=== PATIENT | male | born 2000 | race Caucasian/White ===

== ENCOUNTER 2023-09-18 14:34 | Emergency (ER) | payer OTHER ==
[~2023-09-18] VITALS: Ht 172.7 cm; Wt 76.1 kg
[2023-09-18 18:23] LABS: BASO # 0.1 10^3/uL (0.0-0.2); BASO % 0.9 % (0.0-1.0); EOS # 0.3 10^3/uL (0.0-0.5); EOS % 2.8 % (0.0-3.0); HEMATOCRIT 46.2 % (42.0-52.0); HEMOGLOBIN 16.3 g/dl (13.5-17.5); LYMPH # 3.9 10^3/uL (1.5-5.0); LYMPH % 43.4 % (24.0-44.0); MEAN CORPUSCULAR HEMOGLOBIN 31.7 pg (27.0-33.0); MEAN CORPUSCULAR HGB CONC 35.3 g/dl (32.0-36.5); MEAN CORPUSCULAR VOLUME 89.9 fl (80.0-96.0); MONO # 0.7 10^3/uL (0.0-0.8); MONO % 7.4 % (2.0-8.0); NEUTROPHILS % 44.9 % (36.0-66.0); PLATELET COUNT, AUTOMATED 275 10^3/uL (150-450); RED BLOOD COUNT 5.14 10^6/uL (4.30-6.10); WHITE BLOOD COUNT 8.9 10^3/uL (4.0-10.0)
[2023-09-18] MEDS: NS 1,000 ML IV ONE (18:25)
[2023-09-18] MEDS: methylPREDNISolone 125MG 2ML VIAL IV ONE (18:25)
[2023-09-18] MEDS: LORazepam 2 MG/ML 1ML VIAL IV STA (18:25)
[2023-09-18] MEDS: diphenhydrAMINE 50MG/ML VIAL IV ONE (18:25)
[2023-09-18 18:48] LABS: BLOOD UREA NITROGEN 11 MG/DL (9-23); CALCIUM LEVEL 9.6 MG/DL (8.5-10.1); CARBON DIOXIDE LEVEL 31 MMOL/L (20-31); CHLORIDE LEVEL 104 MMOL/L (98-107); CREATININE FOR GFR 0.81 MG/DL (0.70-1.30); GLOMERULAR FILTRATION RATE > 60.0 (>60); GLUCOSE, FASTING 84 MG/DL (60-100); MAGNESIUM LEVEL 2.1 MG/DL (1.8-2.4); POTASSIUM SERUM 4.2 MMOL/L (3.5-5.1); SODIUM LEVEL 142 MMOL/L (136-145)
[2023-09-18] MEDS ORDERED: CLEO300C2 PO (19:59)
[2023-09-18 20:08] VITALS: BP 112/63; TEMP 97.6; O2SAT 100
== END 2023-09-18 20:13 | disposition home or self-care (01) ==
LOC: M ED 14:34
DX: L27.0 Generalized skin eruption due to drugs and medicaments taken internally (principal); Z79.2 Long term (current) use of antibiotics
CPT/HCPCS: 80048; 83735; 85025; 96374; 99284; J1200; J2060; J2919

== ENCOUNTER 2024-03-28 13:46 | Emergency (ER) | payer OTHER ==
[~2024-03-28] VITALS: Ht 170.2 cm; Wt 70.5 kg
[~2024-03-28 13:46] MED LIST: CLEO300C2 PO
[2024-03-28 13:49] VITALS: BP 125/76; TEMP 98.4; O2SAT 100
[2024-03-28] MEDS ORDERED: IBUP80TA PO (14:15)
[2024-03-28] MEDS ORDERED: advil PO (14:15)
[2024-03-28] MEDS ORDERED: NAPR-1405 PO (14:15)
[2024-03-28 14:50] LABS: BASO % 0.6 % (0.0-1.0); EOS # 0.1 10^3/uL (0.0-0.5); EOS % 1.6 % (0.0-3.0); HEMOGLOBIN 15.5 g/dl (13.5-17.5); LYMPH # 2.5 10^3/uL (1.5-5.0); LYMPH % 38.6 % (24.0-44.0); MEAN CORPUSCULAR HEMOGLOBIN 32.4 pg (27.0-33.0); MEAN CORPUSCULAR HGB CONC 35.2 g/dl (32.0-36.5); MEAN CORPUSCULAR VOLUME 92.1 fl (80.0-96.0); MONO # 0.5 10^3/uL (0.0-0.8); MONO % 8.2 % (2.0-8.0); NEUTROPHILS # 3.3 10^3/uL (1.5-8.5); NEUTROPHILS % 50.8 % (36.0-66.0); PLATELET COUNT, AUTOMATED 269 10^3/uL (150-450); RED BLOOD COUNT 4.78 10^6/uL (4.30-6.10); WHITE BLOOD COUNT 6.4 10^3/uL (4.0-10.0)
[2024-03-28 15:06] LABS: AMPHETAMINES LEVEL URINE NEGATIVE (NEGATIVE); BARBITURATES URINE NEGATIVE (NEGATIVE); BENZODIAZEPINES URINE NEGATIVE (NEGATIVE); CANNABINOIDS URINE NEGATIVE (NEGATIVE); COCAINE METABOLITE URINE NEGATIVE (NEGATIVE); METHADONE URINE NEGATIVE (NEGATIVE); OPIATES URINE NEGATIVE (NEGATIVE); PHENCYCLIDINE URINE NEGATIVE (NEGATIVE)
[2024-03-28 15:07] LABS: ETHYL ALCOHOL (ETHANOL) 0.004 % (0.000-0.010)
[2024-03-28 15:08] LABS: ALBUMIN 4.5 G/DL (3.2-5.2); ALKALINE PHOSPHATASE 79 U/L (40-129); ALT/SGPT 22 U/L (7.0-40); AST/SGOT 17 U/L (<34); BILIRUBIN,DIRECT 0.2 MG/DL (<0.4); BILIRUBIN,TOTAL 0.5 MG/DL (0.3-1.2); BLOOD UREA NITROGEN 11 MG/DL (9-23); CALCIUM LEVEL 9.5 MG/DL (8.5-10.1); CARBON DIOXIDE LEVEL 28 MMOL/L (20-31); CHLORIDE LEVEL 110 MMOL/L (98-107); CREATININE FOR GFR 0.86 MG/DL (0.70-1.30); GLOMERULAR FILTRATION RATE > 60.0 (>60); GLUCOSE, FASTING 86 MG/DL (60-100); POTASSIUM SERUM 3.7 MMOL/L (3.5-5.1); SALICYLATE LEVEL < 3.0 MG/DL (<30); SODIUM LEVEL 146 MMOL/L (136-145)
[2024-03-28 15:12] LABS: THYROID STIMULATING HORMONE 1.396 uIU/ML (0.55-4.78)
[2024-03-28] MEDS: OMEPRAZOLE 20MG CAP PO ONE (19:05)
[2024-03-28] MEDS ORDERED: OMEP-173 PO (19:45)
== END 2024-03-28 19:53 | disposition home or self-care (01) ==
LOC: M ED 13:46
DX: F41.9 Anxiety disorder, unspecified (principal); R10.13 Epigastric pain; F17.210 Nicotine dependence, cigarettes, uncomplicated; F10.10 Alcohol abuse, uncomplicated; Z88.1 Allergy status to other antibiotic agents; Z79.1 Long term (current) use of non-steroidal anti-inflammatories (NSAID); Z79.899 Other long term (current) drug therapy

== ENCOUNTER 2024-05-06 13:21 | Emergency (ER) | payer OTHER ==
[~2024-05-06] VITALS: Ht 170.2 cm; Wt 72.0 kg
[~2024-05-06 13:21] MED LIST changes: +IBUP80TA PO; +NAPR-1405 PO; +OMEP-173 PO; +advil PO
[2024-05-06 14:45] LABS: BASO % 0.8 % (0.0-1.0); EOS # 0.1 10^3/uL (0.0-0.5); EOS % 2.1 % (0.0-3.0); HEMOGLOBIN 15.4 g/dl (13.5-17.5); LYMPH # 2.1 10^3/uL (1.5-5.0); LYMPH % 39.7 % (24.0-44.0); MEAN CORPUSCULAR HEMOGLOBIN 32.1 pg (27.0-33.0); MEAN CORPUSCULAR HGB CONC 34.2 g/dl (32.0-36.5); MEAN CORPUSCULAR VOLUME 93.8 fl (80.0-96.0); MONO # 0.4 10^3/uL (0.0-0.8); MONO % 7.5 % (2.0-8.0); NEUTROPHILS # 2.6 10^3/uL (1.5-8.5); NEUTROPHILS % 49.7 % (36.0-66.0); PLATELET COUNT, AUTOMATED 222 10^3/uL (150-450); WHITE BLOOD COUNT 5.2 10^3/uL (4.0-10.0)
[2024-05-06 15:09] LABS: CK-MB VALUE MASS 1.3 NG/ML (<3.6)
[2024-05-06 15:10] LABS: BLOOD UREA NITROGEN 12 MG/DL (9-23); CALCIUM LEVEL 9.1 MG/DL (8.5-10.1); CARBON DIOXIDE LEVEL 30 MMOL/L (20-31); CHLORIDE LEVEL 105 MMOL/L (98-107); CREATININE FOR GFR 0.89 MG/DL (0.70-1.30); GLOMERULAR FILTRATION RATE > 60.0 (>60); GLUCOSE, FASTING 90 MG/DL (60-100); POTASSIUM SERUM 4.4 MMOL/L (3.5-5.1); SODIUM LEVEL 142 MMOL/L (136-145)
[2024-05-06 15:18] LABS: CPK CREATINE PHOSPHOKINASE 179 U/L (46-171); MB/CK RELATIVE INDEX 0.72 (< OR =4)
[2024-05-06] MEDS ORDERED: KETOROLAC 30 MG/ML 1ML VIAL IV ONE (15:25)
[2024-05-06] MEDS: ACETAMINOPHEN *IV* 1,000 MG in IV 1 EA IV ONE (15:35)
[2024-05-06 16:38] LABS: ALBUMIN 3.7 G/DL (3.2-5.2); BILIRUBIN,DIRECT 0.1 MG/DL (<0.4); BILIRUBIN,TOTAL 0.3 MG/DL (0.3-1.2); TOTAL PROTEIN 6.3 G/DL (5.7-8.2)
[2024-05-06 16:41] LABS: FREE T4 1.05 NG/DL (0.89-1.76); THYROID STIMULATING HORMONE 1.183 uIU/ML (0.55-4.78)
[2024-05-06 17:00] VITALS: BP 97/60; TEMP 96.8
[2024-05-06 17:21] VITALS: O2SAT 100
== END 2024-05-06 17:50 | disposition home or self-care (01) ==
LOC: M ED 13:21
DX: R07.9 Chest pain, unspecified (principal); I45.10 Unspecified right bundle-branch block; F10.10 Alcohol abuse, uncomplicated; Z88.1 Allergy status to other antibiotic agents; Z88.6 Allergy status to analgesic agent; Z79.1 Long term (current) use of non-steroidal anti-inflammatories (NSAID); Z79.899 Other long term (current) drug therapy
CPT/HCPCS: 71046; 80048; 80076; 82550; 82553; 83690; 84439; 84443; 84484; 85025; 93005; 93041; 94760; 96374; 99285; J0131

== ENCOUNTER 2024-12-15 15:36 | Emergency (ER) | payer OTHER ==
[~2024-12-15] VITALS: Ht 167.6 cm; Wt 63.2 kg
[2024-12-15 17:17] LABS: BASO # 0.0 10^3/uL (0.0-0.2); BASO % 0.9 % (0.0-1.0); EOS # 0.1 10^3/uL (0.0-0.5); EOS % 2.2 % (0.0-3.0); LYMPH # 1.8 10^3/uL (1.5-5.0); LYMPH % 40.6 % (24.0-44.0); MONO # 0.3 10^3/uL (0.0-0.8); MONO % 7.5 % (2.0-8.0); NEUTROPHILS # 2.2 10^3/uL (1.5-8.5); NEUTROPHILS % 48.6 % (36.0-66.0); PLATELET COUNT, AUTOMATED 231 10^3/uL (150-450)
[2024-12-15 17:36] LABS: ETHYL ALCOHOL (ETHANOL) < 0.003 % (0.000-0.010)
[2024-12-15 17:38] LABS: CALCIUM LEVEL 9.9 MG/DL (8.5-10.1); CARBON DIOXIDE LEVEL 33 MMOL/L (20-31); CHLORIDE LEVEL 104 MMOL/L (98-107); CREATININE FOR GFR 0.88 MG/DL (0.70-1.30); GLOMERULAR FILTRATION RATE > 90.0 (>60); MAGNESIUM LEVEL 1.9 MG/DL (1.8-2.4); POTASSIUM SERUM 4.2 MMOL/L (3.5-5.1); SODIUM LEVEL 145 MMOL/L (136-145)
[2024-12-15 17:40] LABS: FREE T4 1.20 NG/DL (0.89-1.76)
[2024-12-15 18:48] LABS: AMPHETAMINES LEVEL URINE NEGATIVE (NEGATIVE); BARBITURATES URINE NEGATIVE (NEGATIVE); BENZODIAZEPINES URINE NEGATIVE (NEGATIVE); CANNABINOIDS URINE NEGATIVE (NEGATIVE); COCAINE METABOLITE URINE NEGATIVE (NEGATIVE); METHADONE URINE NEGATIVE (NEGATIVE); OPIATES URINE NEGATIVE (NEGATIVE); PHENCYCLIDINE URINE NEGATIVE (NEGATIVE)
[2024-12-15] MEDS: NS (Normal Saline) 0.9% 1,000 ML IV ONE (20:05)
[2024-12-15] MEDS: KETOROLAC 30 MG/ML 1 ML VIAL IV ONE (20:50)
[2024-12-15 22:16] VITALS: BP 133/62; TEMP 97.6
[2024-12-15 22:21] VITALS: O2SAT 98
== END 2024-12-15 22:31 | disposition home or self-care (01) ==
LOC: M ED 15:36
DX: R55 Syncope and collapse (principal); S06.0X0A Concussion without loss of consciousness, initial encounter; Y92.9 Unspecified place or not applicable; Y93.9 Activity, unspecified; Y99.9 Unspecified external cause status; Z88.1 Allergy status to other antibiotic agents; Z88.5 Allergy status to narcotic agent
CPT/HCPCS: 70450; 71101; 72125; 80048; 80307; 82077; 83605; 83735; 84439; 84443; 85025; 93005; 93041; 94760; 96361; 96374; 99285; J1885

== ENCOUNTER → 2025-02-14 | Outpatient (CLI) | payer OTHER | LOC: M CARPUL 07:53 | DX: I51.7 Cardiomegaly (principal); R55 Syncope and collapse; I36.1 Nonrheumatic tricuspid (valve) insufficiency ==